=== PATIENT | male | born 1980 | race Caucasian/White ===

== ENCOUNTER 2017-09-09 15:21 | Observation (INO) | payer MEDICAID ==
[2017-09-09] MEDS ORDERED: NS 1,000 ML IV ONE ×3 (15:46→21:56)
[2017-09-09] MEDS ORDERED: ZIPRASIDONE MESYLATE 20 MG VIAL IM PRN (16:06)
[2017-09-09] MEDS ORDERED: ACETAMINOPHEN 500 MG TAB PO ONE (16:10)
--- NOTE | 2017-09-09 16:21 | CPEKG ---
Heart Rate: 114 RR Interval: 526 P-R Interval: 160 QRSD Interval: 92 QT Interval: 344 QTC Interval: 474 P Taylor: 46 QRS Taylor: -37 T Wave Taylor: 11 EKG Severity - OTHERWISE NORMAL ECG - EKG Impression: SINUS TACHYCARDIA EKG Impression: LEFT AXIS DEVIATION Electronically Signed By: Michael Neves 09-Sep-2017 16:51:44
--- NOTE | 2017-09-09 16:43 | EDPHY ---
H & P Time Seen by Provider: 09/09/17 15:37 HPI/ROS: This patient with history of bipolar 2 disorder reports a feeling of some racing thoughts and disorientation. He explains that he is currently staying with a friend in [place] and knows the address but he explains that his phone ran out of charge & he was unable to locate the friend's house after he lost track of friends that he had been out with. He denies any alcohol or drug use. He admits that he has had gradual increasing in some racing thoughts over a 2 week. He reports compliance with his psychiatric medications but he missed last night's dose of depakote, temazepam, propranolol and benztropine because he could not find his way back to his friend's house. He reports that he was up all night wandering around looking for the house and then out through today most the time the sun & started feeling dehydrated and came in for evaluation. He admits that there are portions of the past 24 hr that he does not recall. ROS: Constitutional: No fevers or chills. HEENT: He reports postnasal drip attributed to seasonal allergies no other HEENT complaints. Neuro: He reports a circumferential 5/10 headache similar to prior headaches that started today. No throbbing headache. No head injury. No vision changes. No focal numbness tingling weakness. Psychiatric: He again admits some racing thoughts and there are periods of the last 24 hr that he does not recall. He reports that he has no suicidal ideation , homicidal ideation, hallucinations, ideas of reference or other psychotic symptoms. He admits anxiety. Pulmonary: Mild dry cough the past couple days that he attributes to his postnasal drip. No shortness of breath or pleuritic pain. Cardiovascular: No lightheadedness. No chest pain. GI: No abdominal pain, nausea vomiting diarrhea Integumentary: No skin rash. No diaphoresis. Complete review of symptoms otherwise negative. Past Medical/Surgical History: Bipolar II Smoking Status: Never smoked Physical Exam: General Appearance: Alert, no distress. Eyes: Pupils equal and round and dilated bilaterally 8- 10 mm no pallor or injection. Optic fundi are normal bilaterally. ENT, Mouth: Mucous membranes dry. Respiratory: There are no retractions, lungs are clear to auscultation. Cardiovascular: Tachycardic with no murmur gallop or rub Gastrointestinal: Abdomen is soft and nontender, no masses, bowel sounds normal. Neurological: GCS 15. Cranial nerves 2-12 intact. No focal deficits. Patient has a fine tremor throughout all extremities in his core which she states occurs 10 when he misses his benztropine and propranolol medications. Skin: Warm and dry, no rashes. No diaphoresis. Musculoskeletal: Neck is supple nontender. Extremities are symmetrical, full range of motion. Psychiatric: Mood and affect are normal DIFFERENTIAL DIAGNOSIS: After history and physical exam differential diagnosis was considered for dehydration, hypomania, electrolyte abnormalities, cardiac dysrhythmia, drug intoxication-sympathomimetics, NMS, rhabdo Constitutional: Initial Vital Signs Temperature (C) 37.1 C 09/09/17 15:29 Heart Rate 118 H 09/09/17 15:29 Respiratory Rate 18 09/09/17 15:29 Blood Pressure 136/97 H 09/09/17 15:29 O2 Sat (%) 97 09/09/17 15:29 O2 Delivery Mode Room Air Allergies/Adverse Reactions: No Known Allergies Allergy (Unverified 09/09/17 15:34) Home Medications: Medication Instructions Recorded Benztropine Mesylate 09/09/17 Depakote 09/09/17 Hiv Prep 09/09/17 Propranolol HCl 09/09/17 Prozac 10 MG (*) 09/09/17 Temazepam 09/09/17 MDM/Departure - MDM Diagnostics: 12 lead EKG: Sinus tachycardia 114 performed at 4:18 p.m. Indication: Disorientation tachycardia rule out dysrhythmia Intervals: Normal throughout [place]: P of 46, QRS of -37, T of 11 Overall assessment: sinus tachycardia with left axis deviation. Imaging Results: Imaging Impressions Head CT 09/09/17 21:37 Impression: There is no acute intracranial abnormality identified on this unenhanced CT evaluation. If there is further clinical concern regarding the patient's symptoms, MR imaging is suggested, if not otherwise contraindicated. Findings were discussed with YESY MERAZ MD at 21:55, on 09/09/2017. CT head: Normal per Dr. Cantu. I also reviewed these images. Medications Given: Ziprasidone (Geodon) 20 mg IM Q4HRS PRN PRN Reason: Agitation Stop: 03/08/18 16:05 Last Admin: 09/09/17 16:30 Dose: 20 mg Discontinued Medications Acetaminophen (Tylenol) 1,000 mg PO EDNOW ONE Stop: 09/09/17 16:11 Last Admin: 09/09/17 16:26 Dose: 1,000 mg Sodium Chloride (Ns) 1,000 mls @ 0 mls/hr IV EDNOW ONE; Wide Open PRN Reason: Protocol Stop: 09/09/17 15:47 Last Admin: 09/09/17 15:50 Dose: 1,000 mls Sodium Chloride (Ns) 1,000 mls @ 0 mls/hr IV EDNOW ONE; Wide Open PRN Reason: Protocol Stop: 09/09/17 16:55 Last Admin: 09/09/17 17:00 Dose: 1,000 mls Sodium Chloride (Ns) 1,000 mls @ 0 mls/hr IV EDNOW ONE; Wide Open PRN Reason: Protocol Stop: 09/09/17 21:57 Last Admin: 09/09/17 22:03 Dose: 1,000 mls ED Course/Re-evaluation: Studies: CBC is normal, basic metabolic panel normal except for creatinine of 1.5 Course: IV saline bolus x2 L The patient's tachycardia resolved. I tried reaching this patient's parts assembler nurse practitioner mio Campos at [facility] but was only able to leave a phone message attempting to facilitate close follow-up for tomorrow-Friday rather than the current appointment. Tylenol 1 g p.o. With improvement in headache Geodon 20 mg IM. The patient then fell sleep and napped. Will out him sleep since he had no sleep last night for few hours but then became clear this evening the patient is disoriented to place and time. Prior to that with brief waking the patient answer simple questions appropriately. Given the history of headache, amnesia to part of the past 24 hr and ongoing disorientation I think the patient warrants CT head to rule out stroke, intracranial bleed or other. He agrees to having a CT head. At this point I think that he warrants admission for mental status change and further evaluation pending CT results. The patient is pleasant and cooperative here but remains quite confused. He is unable to recall his address or phone number is a family or friends. He still has not produced any urine despite 2 L IV saline. Will administer 1/3 L saline , obtain urine sent for urine tox add a TSH level and alcohol level and plan on observation admission for mental status change. - Depart Disposition: [facility] Acute Clinical Impression: Anxiety, Dehydration Mental status change Qualifiers: Altered mental status type: delirium Qualified Code(s): R41.0 - Disorientation , unspecified Condition: Fair Instructions: Dehydration (ED), Anxiety (ED) Additional Instructions: Diagnoses: 1. Anxiety 2. Dehydration You received at 20 mg intramuscular injection of Geodon medication here today. Your labs are consistent with dehydration. He received 2 L of IV normal saline Plan: Resume you're psychiatric medications and follow-up with your psychiatrist. Try to move the appointment to Friday-tomorrow. Return emergency department for any significant worsening of her symptoms despite treatment plan. Referrals: NONE *PRIMARY CARE P,. [Primary Care Provider] - As per Instructions Maria Elena Rodriguez MD [Medical Doctor] - As per Instructions
[2017-09-09] MEDS ORDERED: ONDANSETRON 4 MG/2 ML VIAL IVP PRN (23:07)
[2017-09-09] MEDS ORDERED: diphenhydrAMINE 25 MG CAP PO PRN (23:07)
[2017-09-09] MEDS ORDERED: NS 1,000 ML IV SCH (23:15)
[2017-09-09 23:29] LABS: CREATINE KINASE 137 IU/L (0-224)
[2017-09-10] MEDS: LORazepam 0.5 MG TAB PO PRN ×2 (01:14→14:33)
--- NOTE | 2017-09-10 01:24 | PDGENHP ---
History and Physical - Chief Complaint Altered mental status, dehydration - History of Present Illness Source-patient is able to provide some on history on he does appear reliable regarding his past medical history but he has some loss of memory regarding events of the last 24-48 hrs. EMR was reviewed and case discussed with [facility] ED provider. HPI-this is a pleasant 37-year-old gentleman with past medical history significant for bipolar 2 disorder, HTN, anxiety who presented to [facility] today with complaints of some racing thoughts and dehydration. Patient was visiting a friend in [place] and apparently had gone out some other friends for the evening. He was trying to return to the house when batter of his phone ran out and he was not able to find the exact location of where he was staying. Patient states that he has lost some memory intermittently of events that occurred. Appears patient has been walking outside all day. Temperatures outside have been 90-100F today. Upon presentation patient was only oriented to his name. Patient thinks he may have fallen. He does complain of left knee and left ankle pain. He states that he felt he was unsteady on that side. He denies any current headache. Denies any fevers or chills. Denies any cough or shortness of breath. Denies any nausea vomiting or abdominal pain. Patient reports that he is typically"compliant with all have his psychiatric medications including his Depakote, Prozac, and benztropine. The ED physician spoke with the patient's friend briefly in his notes he had mention that patient was last seen on Friday 2 days ago. Patient denies any SI or HI. History Information - Allergies/Home Medication List Allergies/Adverse Reactions: No Known Allergies Allergy (Unverified 09/09/17 15:34) Home Medications: Benztropine Mesylate 09/09/17 [Last Taken Unknown] Depakote 09/09/17 [Last Taken Unknown] Hiv Prep 09/09/17 [Last Taken Unknown] Propranolol HCl 09/09/17 [Last Taken Unknown] Prozac 10 MG (*) 09/09/17 [Last Taken Unknown] Temazepam 09/09/17 [Last Taken Unknown] I have personally reviewed and updated: family history, medical history, social history, surgical history - Past Medical History hypertension Additional medical history: Bipolar II disorder. HTN. Anxiety. - Surgical History Additional surgical history: Tonsillectomy & Adenoidectomy age 4 - Family History Additional family history: mother and sister with bipolar disorder. multiple family members with HTN. - Social History Smoking Status: Never smoked Alcohol Use: None Drug Use: None Additional social history: Patient lives in [place]. Employed as a senior hardware engineer. [employer] - [employer]. Review of Systems Review of Systems: ROS: 10pt was reviewed & negative except for what was stated in HPI & below Constitutional: Reports: no symptoms EENMT: Reports: no symptoms Cardiac: Reports: no symptoms. Denies: chest pain, edema Respiratory: Reports: no symptoms. Denies: cough, shortness of breath Gastrointestinal: Reports: no symptoms Genitourinary: Reports: no symptoms Muscolosketal: Reports: other (Posterior left knee pain, anterior left ankle pain) Skin: Reports: no symptoms Neurological: Reports: anxiety, emotional problems. Denies: headache, numbness , tingling, weakness Hematologic/Lymphatic: Reports: no symptoms Physical Exam Physical Exam: Selected Entries 09/09/17 15:29 Blood Pressure Automatic Method Heart Rate 118 H Respiratory 18 Rate O2 Sat (%) 97 Temperature (C) 37.1 C Blood Pressure 136/97 H Mean Arterial 110 H Pressure (MAP) O2 Delivery Room Air Mode Temperature Oral Source Temp Pulse Resp BP Pulse Ox 36.9 C 71 20 118/83 H 100 09/10/17 00:20 09/10/17 00:20 09/10/17 00:20 09/10/17 00:20 09/10/17 00:20 Constitutional: other (NAD. Pleasant adult gentleman is lying comfortably in the bed. He is awake and interactive but appears quite anxious as RN is attempting to draw blood.), No chronically ill appearing Eyes: PERRL (Pupils are slightly dilated but symmetric. Reactive to light.), anicteric sclera, EOMI, No scleral injection Ears, Nose, Mouth, Throat: no oral mucosal ulcers, dry mucous membranes, other ( No nasal discharge), No poor dentition Cardiovascular: regular rate and rhythym, no murmur, rub, or gallop, pulses symmetric bilaterally, No edema Peripheral Pulses: 2+: dorsalis-pedis (R), dorsalis-pedis (L) Respiratory: no respiratory distress, no rales or rhonchi, clear to auscultation Gastrointestinal: normoactive bowel sounds, soft, non-tender abdomen, distension (Abdomen slightly distended but soft. No masses.), No tenderness, No guarding, No rebound Genitourinary: no bladder tenderness, No haas in urethra Skin: warm, normal color, no rashes or abrasions Musculoskeletal: full muscle strength, pain with ROM (Left ankle anterior.), other (Patient able to move all extremities while lying in bed. Left knee with a contusion over the patella. Patient able to flex and extend.), No generalized weakness Neurologic: AAOx3 (Patient still with some memory deficit of events leading up to his hospital stay. But he is currently oriented. Still some intermittent confusion and difficulties with word finding but patient is quite anxious and stutters intermittently.) Psychiatric: interacting appropriately, not encephalopathic, thought process linear, anxious, No suicidal ideation, No poor insight, No poor judgement Lymph, Heme, Immunologic: other (Patient with the faint bruise on the anterior knee.) Lab Data & Imaging Review POC Sodium 140 mEq/L (135-145) 09/09/17 15:58 POC Potassium 3.9 mEq/L (3.3-5.0) 09/09/17 15:58 POC Chloride 102.0 mEq/L (97-110) 09/09/17 15:58 POC Total CO2 20 mEq/L (22-31) L 09/09/17 15:58 POC BUN 18 mg/dL (7-23) 09/09/17 15:58 POC Creatinine 1.5 mg/dL (0.7-1.3) H 09/09/17 15:58 POC Glucose 108 mg/dL (70-100) H 09/09/17 15:58 POC Calcium 9.5 mg/dL (8.5-10.4) 09/09/17 15:58 Creatine Kinase 137 IU/L (0-224) 09/09/17 22:00 TSH 4.820 uIU/mL (0.465-4.680) H 09/09/17 22:00 Urine Opiates Screen NEGATIVE ng/mL (NEGATIVE) 09/09/17 22:00 Urine Barbiturates NEGATIVE ng/mL (NEGATIVE) 09/09/17 22:00 Valproic Acid < 10.0 mcg/mL (50.0-150.0) L 09/09/17 22:00 Ur Phencyclidine Scrn NEGATIVE ng/mL (NEGATIVE) 09/09/17 22:00 Ur Amphetamines Screen NEGATIVE ng/mL (NEGATIVE) 09/09/17 22:00 U Benzodiazepines Scrn NEGATIVE ng/mL (NEGATIVE) 09/09/17 22:00 Urine Cocaine Screen NEGATIVE ng/mL (NEGATIVE) 09/09/17 22:00 U Marijuana (THC) Screen NEGATIVE ng/mL (NEGATIVE) 09/09/17 22:00 Ethyl Alcohol < 10 mg/dL (0-10) 09/09/17 22:00 Imaging Review: CT Scan of the Head (Without Contrast) Clinical History: 37-year-old male with dehydration, cephalgia, lightheadedness , and a mental status change. Technique: Axial unenhanced images were obtained from the vertex through the skull base, reformatted at 5.00 and 1.50 mm increments, and reviewed in bone, brain, and subdural windows. Images were reprocessed in parasagittal and paracoronal planes. Dose reduction techniques were utilized. The DFOV is 24.3 cm. Comparison Study: None. Findings: The ventricles and basilar cisterns are normal in size, and symmetrical in configuration. There is no midline shift, or other evidence of mass effect. There is no abnormal intra or extra-axial blood collection, or acute infarction identified. The mastoids are patent. There is trace mucosal thickening associated with the ethmoids and the anterior sphenoids. The frontal and sphenoid sinuses are patent. The craniocervical junction, sella turcica, pineal gland, and the orbits are within normal limits. There is no acute calvarial fracture, or osteolytic or blastic lesion. Impression: There is no acute intracranial abnormality identified on this unenhanced CT evaluation. If there is further clinical concern regarding the patient's symptoms, MR imaging is suggested, if not otherwise contraindicated. Findings were discussed with YESY MERAZ MD at 21:55, on 09/09/2017. Visualized and Interpreted Chest x-ray results: Yes Visualized and Interpreted EKG results: Yes EKG additional interpertation: sinus tachy 110s. no acute ST changes. QTc 474. Assessment & Plan Assessment: 37-year-old gentleman with history of bipolar disorder, anxiety, HTN who presents to the ED today with complaints of racing thoughts and confusion #Altered mental status - differential diagnosis likely multifactorial including psychiatric (giovani, psychosis, sleep deprivation) and metabolic (dehydration, LUIS FERNANDO, medication withdrawal, negative tox screen). The patient has been afebrile , CK is normal and no evidence of muscle rigidity less likely concern for NMS. CT head was negative for anything acute. Patient was last seen 2 days ago by friends. He has not had his usual medications including Depakote and benztropine for is bipolar. Additionally he had reported to the ED provider that he had been having racing thoughts for approximately 2 weeks. He has a scheduled outpatient appointment on with his mental health care team. Patient's mental status is some improving although he still has some has confusion. The patient received 20 mg IM Geodon in the emergency department and did sleep for several hours. He continued to have some mild confusion although he is improving slowly. Additionally patient was significantly dehydrated. He did not start void until after the 3rd L was initiated. #Acute kidney injury - status post IV fluids likely pre renal secondary to dehydration. Continue with IV fluid supplementation encourage oral hydration. A.m. BMP has been ordered. #Dehydration (Acute) - status post 3 L IV fluid in the emergency department. Will continue with IV fluid over night and repeat BMP in the morning. Additionally encourage oral hydration as tolerated. #Anxiety (Acute) - patient increasingly anxious with RN attempting to do IV sites have and blood draw. # benign essential hypertension - blood pressures at this time are acceptable. Continue with IV fluid hydration. Resume patient's home medications after discharge and when renal function has resolved. FEN - IV fluids as noted above. Diet as tolerated. Electrolyte monitoring and replacement if needed. PPX-SCDs. Mobilize as tolerated. Lovenox if patient should stay additional day. Cor status-full Disposition patient admitted to observation status on the medical floor at this time. His vital signs are acceptable. Patient's mentation has improved significantly since his and original presentation to the ED. Anticipate that he should be able to discharge home sometime tomorrow after continued IV fluid hydration and when his mentation is completely in baseline.
[2017-09-10 04:58] LABS: CREATINE KINASE 98 IU/L (0-224)
[2017-09-10 05:37] LABS: PLATELET COUNT 164 10^3/uL (150-400)
[2017-09-10] MEDS ORDERED: ENOXAPARIN 40 MG/0.4 ML SYR SC SCH (09:00)
[2017-09-10] MEDS ORDERED: ACETAMINOPHEN 325 MG TAB PO PRN (12:05)
[2017-09-10] MEDS ORDERED: LISINOPRIL 5 MG TAB PO SCH (12:15)
[2017-09-10] MEDS ORDERED: EMTRICITABINE/TENOFOVIR 200MG/300MG TAB PO SCH (12:15)
[2017-09-10] MEDS ORDERED: FLUoxetine 20 MG CAP PO SCH (12:15)
--- NOTE | 2017-09-10 13:37 | GDS ---
[f rep st] DISCHARGE SUMMARY DISCHARGE DIAGNOSES: 1. Dehydration. 2. Altered mental status. 3. History of bipolar disorder. PHYSICAL EXAM: GENERAL: The patient is alert. VITAL SIGNS: Afebrile at 36.7, pulse 85, respirator y rate 14, blood pressure is 126/78. He is saturating 97% on room air I have seen and evaluated the patient on the day of discharge. HOSPITAL COURSE: The patient is a 37-year-old male brought to the emergency room with complaints of racing thoughts and confusion. He was evaluated and diagnosed with: 1. Altered mental status. The etiology of this is unclear. The patient has not taken his medicatio ns for approximately 2 days. I suspect that he likely could have ingested some drug substance that h as altered his mentation as well as not taking his regularly prescribed psychiatric medications for 2 days. His mentation is improved. He is alert, oriented and appropriate. However, he claims to hav e 0 recollection of what happened. 2. Acute kidney injury. This is in the setting of dehydration and has resolved. 3. Dehydration. Per the patient he has been wandering around the streets for some time lost. He evans s responded well to IV fluids. 4. Anxiety. This has stabilized and resolved. 5. Benign essential hypertension. This is controlled. DISPOSITION: The patient will be discharged home with his friend independently. There are no pendin g studies. DISCHARGE MEDICATIONS: Please refer to EMR form. I have not adjusted the patient's previously presc ribed home medications to the best of my knowledge. FOLLOWUP: Followup will be tomorrow at [facility] where he is normally seen by his psychiatrist. He will also followup in the outpatient setting in 2 weeks with primary care ph ysician, Celia Varghese. He has contracted for safety. He is not suicidal or homicidal, and he feels s ignificantly better. DISCHARGE MEDICATIONS: Restoril, Depakote, Truvada, Prozac, Cogentin, Inderal, lisinopril, Adderall. /[id number]/MODL
[2017-09-10 15:30] VITALS: BP 125/74
[2017-09-10] MEDS ORDERED: BENZTROPINE MESYLATE 2 MG TAB PO SCH (16:00)
[2017-09-10] MEDS ORDERED: PROPRANOLOL HCL 10 MG TAB PO SCH (16:00)
--- NOTE | 2017-09-10 16:21 | ASMTLACE ---
MARISAE Length of stay for Answers: 2 days current admission Acuity / Level of Answers: No Care: Did the patient have an inpatient admission? Comorbidities - select Answers: Other Notes: HTN all that apply # of Emergency department Answers: 1-2 visits in the last 6 months Social determinants Answers: Mental health diagnosis (anxiety, depression, pers onality disorders, etc.) Score: 7 Date Signed: 09/10/2017 04:20 PM Electronically Signed By:Lainey Musa
[2017-09-10] MEDS ORDERED: TEMAZEPAM 15 MG CAP PO SCH (21:00)
[2017-09-10] MEDS ORDERED: DIVALPROEX ER 500 MG TAB PO SCH (21:00)
[2017-09-11] MEDS ORDERED: ADDERALL 10 MG TAB PO SCH (09:00)
== END 2017-09-10 17:50 | disposition home or self-care (01) ==
LOC: CED 15:21 → CEDHOLD 22:16 → F3E 09-10 00:06
PROVIDERS: ADMIT Family Medicine; ATTEND Family Medicine
DX: N17.9 Acute kidney failure, unspecified (principal); E86.0 Dehydration; R41.82 Altered mental status, unspecified; F31.9 Bipolar disorder, unspecified; Z91.19 Patient's noncompliance with other medical treatment and regimen
CPT/HCPCS: 70450; 93005; G0378; 80048-PO; 80307; G0480; J3486